=== PATIENT | female | born 1985 | race Two or more races ===

== ENCOUNTER 2020-04-27 19:53 | Emergency (ER) | payer OTHER ==
[~2020-04-27] VITALS: Ht 165.1 cm; Wt 79.4 kg
[2020-04-27 19:58] VITALS: BP 124/71
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
[2020-04-27] MEDS ORDERED: cefTRIAXone 1,000 MG in LIDOCAINE MPF 1% 2.1 ML IM ONE (20:20)
[2020-04-27] MEDS ORDERED: KETOROLAC 60 MG/2 ML VIAL IM ONE (20:20)
--- NOTE | 2020-04-27 20:20 | NUR ---
PT AMBULATED TO RESTROOM W/ ASSISTANCE AT THIS TIME.
--- NOTE | 2020-04-27 20:22 | NUR ---
URINE SAMPLE PROVIDED AT THIS TIME AND HANDED TO EMT.
[2020-04-27] MEDS ORDERED: cefTRIAXone 1,000 MG VIAL ONE (20:29)
[2020-04-27] MEDS ORDERED: LIDOCAINE MPF 1% 5 ML ONE (20:30)
--- NOTE | 2020-04-27 20:31 | NUR ---
xray at bedside.
--- NOTE | 2020-04-27 20:45 | NUR ---
PT EDUCATED ON TDAP VACCINATION - CONSENT SIGNED AT THIS TIME.
--- NOTE | 2020-04-27 21:00 | NUR ---
ERMD AT BEDSIDE FOR MEDICAL EVALUATION.
[2020-04-27 21:18] VITALS: BP 124/71
--- NOTE | 2020-04-27 21:18 | NUR ---
Patient discharged with v/s stable. Written and verbal after care instructions given and explained. Patient alert, oriented and verbalized understanding of instructions. Wheel Chair Assisted with to pj , pt waiting from ride in [facility] at this time. All questions addressed prior to discharge. ID band removed. Patient advised to follow up with PMD. Rx of keflex given. Patient educated on indication of medication including possible reaction and side effects. Opportunity to ask questions provided and answered.
== END 2020-04-27 21:18 | disposition home or self-care (01) ==
LOC: MED 19:53
DX: M79.605 Pain in left leg (principal); W45.0XXS Nail entering through skin, sequela; Y93.89 Activity, other specified; Y92.89 Other specified places as the place of occurrence of the external cause; Y99.8 Other external cause status
CPT/HCPCS: 73562; 81025; 90471; 90715; 96372; 99284; J0696; J1885; J2001